=== PATIENT | female | born 1930 | race African-American/Black ===

== ENCOUNTER → 2017-03-12 | Outpatient (CLI) | payer MEDICARE, OTHER ==
[2017-03-12 10:43] LABS: HEMATOCRIT 33.6 % (36.0-47.0); HEMOGLOBIN 11.3 g/dL (12.0-15.5); HGB HCT DIFFERENCE 0.3; MEAN CORPUSCULAR HEMOGLOBIN 30.2 pg (27.0-33.4); MEAN CORPUSCULAR HGB CONC 33.5 g/dL (32.0-36.0); MEAN CORPUSCULAR VOLUME 90 fl (80-97); RED BLOOD COUNT 3.73 10^6/uL (3.72-5.28); RED CELL DISTRIBUTION WIDTH 14.8 % (11.5-14.0); WHITE BLOOD COUNT 11.6 10^3/uL (4.0-10.5)
[2017-03-13 12:07] LABS: ALANINE AMINOTRANSFERASE 36 U/L (9-52); ALBUMIN 3.9 g/dL (3.5-5.0); ALKALINE PHOSPHATASE 85 U/L (38-126); ANION GAP 12 (5-19); ASPARTATE AMINO TRANSFERASE 22 U/L (14-36); BILIRUBIN,DIRECT 0.4 mg/dL (0.0-0.4); BILIRUBIN,TOTAL 0.5 mg/dL (0.2-1.3); BLOOD UREA NITROGEN 12 mg/dL (7-20); CALCIUM 9.4 mg/dL (8.4-10.2); CARBON DIOXIDE 28 mmol/L (22-30); CHLORIDE 103 mmol/L (98-107); CHOLESTEROL 138.84 mg/dL (0-200); CREATININE RESULT 0.66 mg/dL (0.52-1.25); Direct HDL 61 mg/dL (>40); GLUCOSE 110 mg/dL (75-110); MAGNESIUM 1.9 mg/dL (1.6-2.3); POTASSIUM 3.8 mmol/L (3.6-5.0); SODIUM 143.4 mmol/L (137-145); TOTAL PROTEIN 6.9 g/dL (6.3-8.2); TRIGLYCERIDES 73 mg/dL (<150)
[2017-03-13 12:18] LABS: DIRECT LDL 45 mg/dL (<100)
== END ==
LOC: OD 09:40
PROVIDERS: ATTEND Family Medicine
DX: I10 Essential (primary) hypertension (principal); E11.42 Type 2 diabetes mellitus with diabetic polyneuropathy
CPT/HCPCS: 36415; 80048; 80061; 80076; 83036; 83735; 85027

== ENCOUNTER 2017-08-27 16:48 | Observation (INO) | payer MEDICARE, OTHER ==
--- NOTE | 2017-08-27 17:07 | ER Document Report ---
ED Medical Screen (RME) - General Chief Complaint: Vision Problem Stated Complaint: HEADACHE Time Seen by Provider: 08/27/17 17:03 Mode of Arrival: Ambulatory Notes: Family brings in patient for altered mental status. They state that they noticed approximately 2 hours ago the patient began to become confused and complained of headache. They also state that they noticed that patient's vision appeared to be altered. Patient states that she just does not feel "right". No focal deficits apparent. TRAVEL OUTSIDE OF THE [place] IN LAST 30 DAYS: No - Related Data Allergies/Adverse Reactions: No Known Allergies Allergy (Verified 08/27/17 16:50) Past Medical History - Social History Chew tobacco use (# tins/day): No Frequency of alcohol use: None Drug Abuse: None - Past Medical History Cardiac Medical History: Reports: Hx Hypertension Endocrine Medical History: Reports: Hx Diabetes Mellitus Type 2 Renal/ Medical History: Denies: Hx Peritoneal Dialysis Physical Exam - Vital signs Vitals: Temp Pulse Resp BP Pulse Ox 98.1 F 62 20 162/66 H 99 08/27/17 16:55 08/27/17 16:55 08/27/17 16:55 08/27/17 16:55 08/27/17 16:55 Course - Vital Signs Vital signs: Temp Pulse Resp BP Pulse Ox 98.1 F 62 20 162/66 H 99 08/27/17 16:55 08/27/17 16:55 08/27/17 16:55 08/27/17 16:55 08/27/17 16:55 Doctor's Discharge - Discharge Referrals: DARREN MAURO DO [Primary Care Provider] - Follow up as needed
--- NOTE | 2017-08-27 17:28 | RADIOLOGY REPORT (SQ) ---
EXAM DESCRIPTION: CT HEAD WITHOUT COMPLETED DATE/TIME: 08/27/2017 5:16 pm REASON FOR STUDY: ams COMPARISON: None. TECHNIQUE: Axial images acquired through the brain without intravenous contrast. Images reviewed wi th bone, brain and subdural windows. Additional sagittal and coronal reconstructions were generated. Images stored on PACS. All CT scanners at this facility use dose modulation, iterative reconstruction, and/or weight based d osing when appropriate to reduce radiation dose to as low as reasonably achievable (ALARA). [facility]: Dose Right [facility]: CareDose [facility]: Dose Right [facility]: Teradose 4D [facility]: [employer] RADIATION DOSE: CT Rad equipment meets quality standard of care and radiation dose reduction techniq ues were employed. CTDIvol: 53.2 mGy. DLP: 1044 mGy-cm. mGy. LIMITATIONS: None. FINDINGS: VENTRICLES: Normal size and contour. CEREBRUM: No mass or hemorrhage or shift. Focal cortical/subcortical low density in the right parieta l lobe. Likely a chronic area of infarct here. Presumed chronic basal ganglia calcifications bilate rally. CEREBELLUM: No masses. No hemorrhage. No alteration of density. No evidence for acute infarction. EXTRAAXIAL SPACES: No fluid collections. No masses. ORBITS AND GLOBE: No intra- or extraconal masses. Normal contour of globe without masses. CALVARIUM: No fracture. PARANASAL SINUSES: No fluid or mucosal thickening. SOFT TISSUES: No mass or hematoma. OTHER: No other significant finding. IMPRESSION: 1. Suspect chronic right focal area of cerebral infarction. No hemorrhage or acute abno rmality detected. Pertinent positive or negative findings of the imaging study reported as a CRITICAL EXAM to ACE MNOTOYA MD at17:22 on 08/27/2017. Category of Critical Exam: Stroke alert EVIDENCE OF ACUTE STROKE: NO. COMMENT: Quality ID # [id number]: Final reports with documentation of one or more dose reduction techniques (e.g., Automated exposure control, adjustment of the mA and/or kV according to patient size, use of iterative reconstruction technique) TECHNICAL DOCUMENTATION: JOB ID: [id number] [employer]- All Rights Reserved Reading location - IP/workstation name: [facility] [email or web address]
--- NOTE | 2017-08-27 17:49 | RADIOLOGY REPORT (SQ) ---
EXAM DESCRIPTION: CHEST SINGLE VIEW COMPLETED DATE/TIME: 08/27/2017 5:23 pm REASON FOR STUDY: ams COMPARISON: None. NUMBER OF VIEWS: One view. TECHNIQUE: Single frontal radiographic view of the chest acquired. LIMITATIONS: None. FINDINGS: LUNGS AND PLEURA: No opacities, masses or pneumothorax. No pleural effusion. MEDIASTINUM AND HILAR STRUCTURES: No masses. Contour normal. HEART AND VASCULAR STRUCTURES: Heart normal in size. Normal vasculature. BONES: Osteopenic. HARDWARE: None in the chest. OTHER: No other significant finding. IMPRESSION: NO SIGNIFICANT RADIOGRAPHIC FINDING IN THE CHEST. TECHNICAL DOCUMENTATION: JOB ID: [id number] [employer]- All Rights Reserved Reading location - IP/workstation name: [email or web address]
[2017-08-27 18:11] LABS: ABSOLUTE BASOPHILS # (AUTO) 0.1 10^3/uL (0.0-0.2); ABSOLUTE EOSINOPHILS # (AUTO) 0.2 10^3/uL (0.0-0.6); ABSOLUTE LYMPHOCYTES (AUTO) 2.1 10^3/uL (0.5-4.7); ABSOLUTE MONOCYTES (AUTO) 0.5 10^3/uL (0.1-1.4); ABSOLUTE NEUT (AUTO) 12.3 10^3/uL (1.7-8.2); BASOPHILS % (AUTO) 0.9 % (0-2); EOSINOPHILS % (AUTO) 1.6 % (0-6); HEMATOCRIT 38.4 % (36.0-47.0); HEMOGLOBIN 12.6 g/dL (12.0-15.5); LYMPHOCYTES % (AUTO) 13.9 % (13-45); MEAN CORPUSCULAR HEMOGLOBIN 29.1 pg (27.0-33.4); MEAN CORPUSCULAR HGB CONC 32.7 g/dL (32.0-36.0); MEAN CORPUSCULAR VOLUME 89 fl (80-97); MONOCYTES % (AUTO) 3.4 % (3-13); PLATELET COUNT 351 10^3/uL (150-450); RED BLOOD COUNT 4.31 10^6/uL (3.72-5.28); SEGMENTED NEUTROPHILS % (AUTO) 80.2 % (42-78); TOTAL CELLS COUNTED % (AUTO) 100 %; WHITE BLOOD COUNT 15.3 10^3/uL (4.0-10.5)
[2017-08-27] MEDS ORDERED: DEXTROSE 50%-WATER 25 GM/50 ML DISP.SYRIN IV ONE (18:33)
[2017-08-27] MEDS ORDERED: PROCHLORPERAZINE EDISYLATE INJ 10 MG/2 ML VIAL IV ONE (18:33)
[2017-08-27] MEDS ORDERED: ONDANSETRON HCL INJ/PF 4 MG/2 ML SDV IV ONE (18:33)
[2017-08-27] MEDS ORDERED: NORMAL SALINE 1000 ML 500 ML IV ONE (18:40)
[2017-08-27 19:24] LABS: ALANINE AMINOTRANSFERASE 21 U/L (9-52); ALBUMIN 4.4 g/dL (3.5-5.0); ALKALINE PHOSPHATASE 97 U/L (38-126); ANION GAP 12 (5-19); ASPARTATE AMINO TRANSFERASE 22 U/L (14-36); BILIRUBIN,DIRECT 0.4 mg/dL (0.0-0.4); BILIRUBIN,TOTAL 0.5 mg/dL (0.2-1.3); BLOOD UREA NITROGEN 16 mg/dL (7-20); CALCIUM 10.1 mg/dL (8.4-10.2); CARBON DIOXIDE 27 mmol/L (22-30); CHLORIDE 103 mmol/L (98-107); GLUCOSE 116 mg/dL (75-110); POTASSIUM 4.3 mmol/L (3.6-5.0); SODIUM 141.8 mmol/L (137-145); TOTAL PROTEIN 8.1 g/dL (6.3-8.2)
--- NOTE | 2017-08-27 19:42 | EKG REPORT ---
SEVERITY:- ABNORMAL ECG - SINUS RHYTHM FIRST DEGREE AV BLOCK LEFT VENTRICULAR HYPERTROPHY : Confirmed by: Jose Manuel Collins MD 27-Aug-2017 19:41:06
[2017-08-27] MEDS ORDERED: LABETALOL HCL INJ 20 MG/4 ML DISP.SYRIN IV ONE (19:47)
[2017-08-27] MEDS ORDERED: HYDRALAZINE HCL INJ/PF 20 MG/1 ML SDV IV ONE (19:50)
[2017-08-27 19:58] LABS: APPEARANCE,URINE CLEAR; BILIRUBIN,URINE NEGATIVE (NEGATIVE); COLOR,URINE STRAW; GLUCOSE, URINE NEGATIVE (NEGATIVE); KETONES,URINE NEGATIVE (NEGATIVE); LEUKOCYTE ESTERASE,URINE NEGATIVE (NEGATIVE); NITRITE,URINE NEGATIVE (NEGATIVE); PROTEIN,URINE NEGATIVE (NEGATIVE); URINE SPECIFIC GRAVITY 1.009; UROBILINOGEN,URINE NEGATIVE mg/dL (<2.0)
[2017-08-27] MEDS ORDERED: CARVEDILOL 6.25 MG TABLET PO ONE (20:12)
[2017-08-27] MEDS ORDERED: AMLODIPINE BESYLATE 5 MG TABLET PO ONE (20:39)
[2017-08-27] MEDS ORDERED: NICARDIPINE HCL RTU, ISO-OS 20 MG/200 ML RTUINJ IV PRN (21:29)
--- NOTE | 2017-08-27 22:11 | ER Document Report ---
ED General - General Chief Complaint: Vision Problem Stated Complaint: HEADACHE Time Seen by Provider: 08/27/17 17:03 Mode of Arrival: Ambulatory TRAVEL OUTSIDE OF THE [place] IN LAST 30 DAYS: No - HPI Patient complains to provider of: Headache altered mental state Notes: Patient was brought in according to the E note by family members for headache and altered mental state. Apparently this occurred very acutely. Patient was seen RME and then brought back to the main side. Patient had no family members upon my evaluation nursing staff and already found an extra fentanyl patch on her leg and removed it patient also had a Accu-Chek performed showing hyperglycemia with sugar of 69. Patient was given juice did quickly evaluate the patient who is alert moving all 4 extremities only complaining of a headache at this time. We did order IV dextrose which was administered. Upon reevaluation patient more clingy alert still complaining of a headache frontal. Patient denies any fevers chills nausea vomiting. Patient states just otherwise feeling unwell. Patient is alert and oriented 3. No obvious deficits seen - Related Data Allergies/Adverse Reactions: No Known Allergies Allergy (Verified 08/27/17 16:50) Past Medical History - Social History Smoking Status: Never Smoker Chew tobacco use (# tins/day): No Frequency of alcohol use: None Drug Abuse: None Family History: Reviewed & Not Pertinent Patient has suicidal ideation: No Patient has homicidal ideation: No - Past Medical History Cardiac Medical History: Reports: Hx Hypertension Endocrine Medical History: Reports: Hx Diabetes Mellitus Type 2 Renal/ Medical History: Denies: Hx Peritoneal Dialysis Review of Systems - Review of Systems Constitutional: No symptoms reported EENT: No symptoms reported Cardiovascular: No symptoms reported Respiratory: No symptoms reported Gastrointestinal: No symptoms reported Genitourinary: No symptoms reported Female Genitourinary: No symptoms reported Musculoskeletal: No symptoms reported Skin: No symptoms reported Hematologic/Lymphatic: No symptoms reported Neurological/Psychological: Other - Altered mental state headache -: Yes All other systems reviewed and negative Physical Exam - Vital signs Vitals: Temp Pulse Resp BP Pulse Ox 98.1 F 62 20 162/66 H 99 08/27/17 16:55 08/27/17 16:55 08/27/17 16:55 08/27/17 16:55 08/27/17 16:55 Interpretation: Normal - General General appearance: Appears well, Alert - HEENT Head: Normocephalic, Atraumatic Eyes: Normal Pupils: PERRL - Respiratory Respiratory status: No respiratory distress Chest status: Nontender Breath sounds: Normal Chest palpation: Normal - Cardiovascular Rhythm: Regular Heart sounds: Normal auscultation Murmur: No - Abdominal Inspection: Normal Distension: No distension Bowel sounds: Normal Tenderness: Nontender Organomegaly: No organomegaly - Back Back: Normal, Nontender - Extremities General upper extremity: Normal inspection, Nontender, Normal color, Normal ROM , Normal temperature General lower extremity: Normal inspection, Nontender, Normal color, Normal ROM , Normal temperature, Normal weight bearing. No: Francesco's sign - Neurological Neuro grossly intact: Yes Cognition: Normal Orientation: AAOx4 [place] Coma Scale Eye Opening: Spontaneous [place] Coma Scale Verbal: Oriented Domen[place] Coma Scale Motor: Obeys Commands [place] Coma Scale Total: 15 Speech: Normal Cranial nerves: Normal Cerebellar coordination: Normal, Other - Was informed by nursing staff that her cerebellar testing upon receiving the patient was abnormal. My cerebellar testing was normal no pass pointing. 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 Initial evaluation patient was found to have a low blood sugar an extra fentanyl patch. Mr. Li patch was removed patient was given IV glucose patient physical examination not revealing pedicle pathology initially able to ambulate to the bathroom no unilateral weakness no deficits seen. Upon reevaluation of family at bedside states the patient does still seem to be off. States it is patient still seems to be confused currently still complains about headache and they are concerned as of the patient's blood pressure has increased. Patient states she has not taken her evening meds patient initially after Compazine Gilma stated that her headache had improved on stating that her headache still persist. Patient did undergo a CAT scan showing old stroke with family does confirm. Initially an IV dose of hydralazine was given with minimal lowering of the blood pressure. Family was able to obtain the patient's medications we did review these at bedside decision was made to give her orders. These were ordered and given by nursing staff however when this was administered by the nurse apparently patient family was not in the room. Family states upon their entrance into the examination room still saw the patient's blood pressure is elevated therefore leg again gave the patient her nighttime dose of blood pressure medications 5 mg of amlodipine and carvedilol. Patient still continues to complain of mild headache frontal. Again noted neurological deficits seen the do believe the patient is altered mental state was more likely due to hypoglycemia but I am concerned that the patient received doubled her nighttime dose of blood pressure medications. Did discuss with the hospital staff is agreed to admit the patient for altered mental state transient and blood pressure - Vital Signs Vital signs: Temp Pulse Resp BP Pulse Ox 98.1 F 66 22 H 167/80 H 91 L 08/27/17 16:55 08/27/17 17:50 08/27/17 22:46 08/27/17 22:46 08/27/17 22:46 - Laboratory Result Diagrams: 08/27/17 17:57 08/27/17 18:35 Laboratory results interpreted by me: 08/27/17 08/27/17 08/27/17 17:25 17:57 18:35 WBC 15.3 H RDW 15.0 H Seg Neutrophils % 80.2 H Absolute Neutrophils 12.3 H Glucose 116 H POC Glucose 69 L Discharge - Discharge Clinical Impression: Hypoglycemia, Uncontrolled hypertension Condition: Good Disposition: ADMITTED OBSERVATION Admitting Provider: Hospitalist Unit Admitted: Medical Floor
[2017-08-27] MEDS ORDERED: ACETAMINOPHEN 650 MG SUPP.RECT PR PRN (22:30)
[2017-08-27] MEDS ORDERED: ONDANSETRON HCL INJ/PF 4 MG/2 ML SDV IV PRN (22:30)
[2017-08-27] MEDS ORDERED: DEXTROSE 40% GEL 15 GM TUBE PO PRN ×2 (22:37)
[2017-08-27] MEDS ORDERED: DEXTROSE 5%-NORMAL SALINE 1,000 ML IV PRN (22:37)
[2017-08-27] MEDS ORDERED: DEXTROSE 50%-WATER 25 GM/50 ML DISP.SYRIN IV PRN ×2 (22:37)
[2017-08-27] MEDS ORDERED: INSULIN LISPRO 100 UNIT/ML 3 ML VIAL SUBCUT PRN (22:37)
[2017-08-27] MEDS ORDERED: GLUCAGON,HUMAN RECOMB 1 MG INJ IM PRN (22:37)
--- NOTE | 2017-08-27 23:13 | PDOC H&P ---
History of Present Illness Admission Date/PCP: 08/27/17 23:02 DARREN MAURO DO History of Present Illness: EVELINELY MEREDITH is a very pleasant 86 year old black female patient brought by her son with chief complaint of confusion and incoherent speech. Reportedly patient is active and independent for her activities of daily living. There is no report of fever, chills palpitation or diaphoresis. She does not have cough or dysuria. Patient uses oxycodone and fentanyl patch for knee pain. Her initial blood work shows blood glucose of 69 patient's hypoglycemic which might explain also her confusion. Does not have any lateralizing sign or focal neurologic deficits. Past Medical History Cardiac Medical History: Reports: Hypertension Endocrine Medical History: Reports: Diabetes Mellitus Type 2 Past Surgical History Past Surgical History: Reports: Orthopedic Surgery Social History Smoking Status: Never Smoker Frequency of Alcohol Use: None Family History Family History: None Parental Family History Reviewed: Yes Children Family History Reviewed: Yes Sibling(s) Family History Reviewed.: Yes Medication/Allergy Allergies/Adverse Reactions: No Known Allergies Allergy (Verified 08/27/17 16:50) Review of Systems Constitutional: PRESENT: as per HPI Ears: PRESENT: as per HPI Breasts: PRESENT: as per HPI Cardiovascular: PRESENT: as per HPI Respiratory: PRESENT: as per HPI Physical Exam Vital Signs: Temp Pulse Resp BP Pulse Ox 98.1 F 66 22 H 167/80 H 91 L 08/27/17 16:55 08/27/17 17:50 08/27/17 22:46 08/27/17 22:46 08/27/17 22:46 General appearance: PRESENT: no acute distress Head exam: PRESENT: atraumatic, normocephalic Respiratory exam: PRESENT: clear to auscultation vipul. ABSENT: rales, rhonchi, wheezes Cardiovascular exam: PRESENT: RRR. ABSENT: diastolic murmur, rubs, systolic murmur Results Impressions: Chest X-Ray 08/27/17 17:04 IMPRESSION: NO SIGNIFICANT RADIOGRAPHIC FINDING IN THE CHEST. Head CT 08/27/17 17:04 IMPRESSION: 1. Suspect chronic right focal area of cerebral infarction. No hemorrhage or acute abnormality detected. Pertinent positive or negative findings of the imaging study reported as a CRITICAL EXAM to ACE ARVIZU MD at17:22 on 08/27/2017. Category of Critical Exam: Stroke alert EVIDENCE OF ACUTE STROKE: NO. Assessment & Plan - Diagnosis (1) Hypoglycemia Is this a current diagnosis for this admission?: Yes Plan: I will start her D5 with normal saline at a rate of 75 mm/h. I will start her diet Put her on sliding scale (2) Uncontrolled hypertension Is this a current diagnosis for this admission?: Yes Plan: I will adjust her home medication (3) Diabetes 1.5, managed as type 2 Is this a current diagnosis for this admission?: Yes Plan: We will put her on sliding scale and monitor her blood glucose. - Time Critical Time spent with patient: 15-24 minutes
[2017-08-28] MEDS ORDERED: LANSOPRAZOLE 30 MG TAB.RAP.DR PO SCH (06:00)
[2017-08-28 06:49] LABS: HEMATOCRIT 34.3 % (36.0-47.0); HEMOGLOBIN 11.2 g/dL (12.0-15.5); MEAN CORPUSCULAR HEMOGLOBIN 28.9 pg (27.0-33.4); MEAN CORPUSCULAR HGB CONC 32.6 g/dL (32.0-36.0); MEAN CORPUSCULAR VOLUME 89 fl (80-97); PLATELET COUNT 298 10^3/uL (150-450); RED BLOOD COUNT 3.86 10^6/uL (3.72-5.28); RED CELL DISTRIBUTION WIDTH 15.1 % (11.5-14.0); WHITE BLOOD COUNT 15.3 10^3/uL (4.0-10.5)
[2017-08-28 07:13] LABS: ANION GAP 10 (5-19); BLOOD UREA NITROGEN 13 mg/dL (7-20); CALCIUM 9.8 mg/dL (8.4-10.2); CARBON DIOXIDE 27 mmol/L (22-30); CHLORIDE 103 mmol/L (98-107); GLUCOSE 148 mg/dL (75-110); POTASSIUM 3.9 mmol/L (3.6-5.0)
--- NOTE | 2017-08-28 09:47 | Physician Advisory Note ---
Physician Advisor ProgressNote .: Pursuant to the plan for Wille[facility], I have reviewed the medical record for this patient. Physician Advisor Statement: Please consider documenting, if you agree: 1. ""Hypertensive Urgency" or "Hypertensive Emergency": - "Hypertensive Urgency" requires urgent tx & BP's systolic >180 or diastolic >120. - "Hypertensive Emergency" requires urgent tx & BP's systolic >180 or diastolic >120 AND symptoms &/or end-organ effects (such as headache or dizziness, blurred vision, focal numbness/weakness, ARF, SOB, N/V, CP or unstable angina, ... - Nursing note last pm @18:54 states pt reported having "bad VILLA and my vision was funny" after waking from nap prior to arrival). 2. Altered mental status, likely due to [see options below], & evidenced by Cause options = A. Acute metabolic encephalopathy due to , or B. Acute ____ type encephalopathy due to on top of baseline dementia, evidenced by (which is different than baseline), or C. Psychiatric disorder: dementia, jack, schizophrenia, (stating "AMS ", or "delirium" without underlying cause/encephalopathy leads to coding as an unspecified psych d/o) D. Hypoglycemia, or .... Evidence: - H&P states "confusion, incoherent speech" (more details/ examples of what she was doing that was different from baseline would be helpful ) 3. Medical necessity: If the Medicare pt is not felt safe medically for d/c today, after 1MN, please document clinical reasons/concerns, & may change to Inpatient status. (Such as: "persistent tachycardia", or "persistent bradycardia", or "persistent/recurrent tachypnea", or "persistent leukocytosis", or "recurrent hypoxemia", or ...) 4. "side effect of Coreg extra dose, given in error, causing bradycardia" ( after family gave extra dose of her home Coreg & Norvasc on 4 PM without telling nurse until after nurse gave her her scheduled doses ...) Thanks! CK
[2017-08-28] MEDS ORDERED: DOCUSATE SODIUM 100 MG CAPSULE PO SCH (10:00)
[2017-08-28] MEDS ORDERED: ENOXAPARIN SODIUM INJ 30 MG/0.3 ML DISP.SYRIN SUBCUT SCH (10:00)
[2017-08-28 16:16] VITALS: BP 181/62
[2017-08-28] MEDS ORDERED: HYDRALAZINE HCL INJ/PF 20 MG/1 ML SDV IV ONE (16:45)
[2017-08-28] MEDS ORDERED: FENTANYL 25 MCG/HR PATCH.TD72 TD SCH (18:00)
--- NOTE | 2017-08-28 18:04 | PDOC DISCHARGE SUMMARY ---
General - Admit/Disc Date/PCP Admission Date/Primary Care Provider: 08/27/17 23:02 DARREN MAURODO Discharge Date: 08/28/17 - Discharge Diagnosis (1) Encephalopathy Is this a current diagnosis for this admission?: Yes Summary: The patient was somewhat confused at the time of admission likely due to her hypertensive urgency. She is back to her cognitive baseline. I have spoken to multiple family members and they say she is back to her normal self. She also may have been slightly dehydrated although her labs were normal. (2) Hypertensive urgency Is this a current diagnosis for this admission?: Yes Summary: Resolved. The patient had not taken her blood pressure medications. She will continue p.o. amlodipine at discharge. She will need close follow-up from her outpatient physician. (3) Chronic pain Is this a current diagnosis for this admission?: Yes Summary: Chronic pain with continuous narcotic use. Continue fentanyl patch (4) Opiate dependence, continuous Is this a current diagnosis for this admission?: Yes Summary: Continue fentanyl patch. (5) Hypoglycemia Is this a current diagnosis for this admission?: Yes (6) Diabetes Is this a current diagnosis for this admission?: Yes Summary: She will resume her home regimen - Additional Information Resuscitation Status: Full Code Home Medications: Amlodipine Besylate [Norvasc 10 mg Tablet] 10 mg PO QHS MDD LF 07/14 75% BOTTLE 08/28/17 Atorvastatin Calcium [Lipitor 20 mg Tablet] 20 mg PO QHS MDD LF 04/17 FULL BOTTLE 08/28/17 Carvedilol [Coreg 6.25 mg Tablet] 6.25 mg PO Q12 MDD LF 04/12/16 FULL BOTTLE 03/07 Fentanyl [Duragesic 25 mcg/hr Transdermal Patch] 1 each TD Q2D 08/28/17 Gabapentin [Neurontin 100 mg Capsule] 100 mg PO QHS 08/28/17 Glyburide/Metformin HCl [Glyburide-Metformin 5-500 mg] 1 tab PO Q8 MDD LF 02/10 HALF BOTTLE 08/28/17 Lansoprazole [Prevacid] 30 mg PO ACBRKFST MDD LF 07/09 HALF BOTTLE 08/28/17 Venlafaxine HCl [Venlafaxine HCl ER] 75 mg PO DAILY MDD LF 01/20 FULL BOTTLE 08/28 History of Present Illness History of Present Illness: VICTOR HUGO HARPER is a 86 year old female who presented to the emergency room somewhat confused. Hospital Course Hospital Course: The patient is a very pleasant 86-year-old -[place] female who was brought to the son to the emergency room with some confusion. The patient is active and independent with her date daily activities at home. In the emergency room she was found to be borderline hypoglycemic and she was found to have a hypertensive urgency. This was treated and her blood pressure has normalized. She was kept in the hospital overnight. She received some gentle hydration and today she is back to her baseline. She is up ambulating in the room and the patient's family states that she is back to normal. At this point we are going to discharge her to home. We will get her an appointment to follow -up with her primary care physician next week. She will be discharged home today in stable condition Physical Exam Vital Signs: Temp Pulse Resp BP Pulse Ox 98.4 F 77 19 181/62 H 100 08/28/17 16:15 08/28/17 16:15 08/28/17 16:15 08/28/17 16:15 08/28/17 16:15 Intake & Output 08/27/17 08/28/17 08/29/17 06:59 06:59 06:59 Weight 65.78 kg General appearance: PRESENT: no acute distress, well-developed, well-nourished Head exam: PRESENT: atraumatic, normocephalic Respiratory exam: PRESENT: clear to auscultation vipul. ABSENT: rales, rhonchi, wheezes Cardiovascular exam: PRESENT: RRR. ABSENT: diastolic murmur, rubs, systolic murmur GI/Abdominal exam: PRESENT: normal bowel sounds, soft. ABSENT: distended, guarding, mass, organolmegaly, rebound, tenderness Rectal exam: PRESENT: deferred Extremities exam: PRESENT: full ROM. ABSENT: calf tenderness, clubbing, pedal edema Musculoskeletal exam: PRESENT: ambulatory Neurological exam: PRESENT: alert, awake, oriented to person, oriented to place , oriented to time, oriented to situation, CN II-XII grossly intact. ABSENT: motor sensory deficit Psychiatric exam: PRESENT: appropriate affect, normal mood. ABSENT: homicidal ideation, suicidal ideation Skin exam: PRESENT: dry, intact, warm. ABSENT: cyanosis, rash Results Laboratory Results: 08/28/17 06:25 08/28/17 06:25 08/28/17 08/28/17 06:25 06:25 WBC 15.3 H RBC 3.86 Hgb 11.2 L Hct 34.3 L MCV 89 MCH 28.9 MCHC 32.6 RDW 15.1 H Plt Count 298 Sodium 140.0 Potassium 3.9 Chloride 103 Carbon Dioxide 27 Anion Gap 10 BUN 13 Creatinine 0.61 Est GFR ( Amer) > 60 Est GFR (Non-Af Amer) > 60 Glucose 148 H Calcium 9.8 Impressions: Chest X-Ray 08/27/17 17:04 IMPRESSION: NO SIGNIFICANT RADIOGRAPHIC FINDING IN THE CHEST. Head CT 08/27/17 17:04 IMPRESSION: 1. Suspect chronic right focal area of cerebral infarction. No hemorrhage or acute abnormality detected. Pertinent positive or negative findings of the imaging study reported as a CRITICAL EXAM to ACE ARVIZU MD at17:22 on 08/27/2017. Category of Critical Exam: Stroke alert EVIDENCE OF ACUTE STROKE: NO. Qualifiers - * PATEINT BEING DISCHARGED WITH ANY OF THE FOLLOWING DIAGNOSIS?: No Plan Time Spent: Greater than 30 Minutes
[2017-08-28] MEDS ORDERED: AMLODIPINE BESYLATE 10 MG TABLET PO SCH (22:00)
[2017-08-28] MEDS ORDERED: (PENDING PHARMACY ID) (Glyburide/Metformin Hcl [Glyburide-Metformin 5-500 Mg] 1 TAB) PO SCH (22:00)
[2017-08-28] MEDS ORDERED: ATORVASTATIN CALCIUM 20 MG TABLET PO SCH (22:00)
[2017-08-28] MEDS ORDERED: CARVEDILOL 6.25 MG TABLET PO SCH (22:00)
[2017-08-28] MEDS ORDERED: GABAPENTIN 100 MG CAPSULE PO SCH (22:00)
[2017-08-29] MEDS ORDERED: GLYBURIDE 5 MG TABLET PO SCH (08:00)
[2017-08-29] MEDS ORDERED: METFORMIN HCL 500 MG TABLET PO SCH (08:00)
[2017-08-29] MEDS ORDERED: VENLAFAXINE HCL 75 MG CAP.SR.24H PO SCH (10:00)
== END 2017-08-28 18:15 | disposition home or self-care (01) ==
LOC: ER 16:48 → EH 23:02 → 4N 08-28 11:31
PROVIDERS: ADMIT Internal Medicine; ATTEND Internal Medicine
DX: G93.40 Encephalopathy, unspecified (principal); I16.0 Hypertensive urgency; G89.29 Other chronic pain; F11.20 Opioid dependence, uncomplicated; E11.649 Type 2 diabetes mellitus with hypoglycemia without coma; M25.569 Pain in unspecified knee; Z79.899 Other long term (current) drug therapy; Z79.84 Long term (current) use of oral hypoglycemic drugs; Z86.73 Personal history of transient ischemic attack (TIA), and cerebral infarction without residual deficits
CPT/HCPCS: 93005; 99285; 96361; 96374; 96375; 36415 ×2; 82962 ×2; 85025; 85027; 80048; 80053; 81001; 71045; 70450; 93010; G0378 ×3; A9270 ×4; J3490 ×2; J0360 ×2; J0780; J2405; J1650; J7030

== ENCOUNTER → 2017-10-08 | Outpatient (CLI) | payer MEDICARE, OTHER ==
[2017-10-08 10:43] LABS: ABSOLUTE BASOPHILS # (AUTO) 0.1 10^3/uL (0.0-0.2); ABSOLUTE EOSINOPHILS # (AUTO) 0.2 10^3/uL (0.0-0.6); ABSOLUTE LYMPHOCYTES (AUTO) 1.8 10^3/uL (0.5-4.7); ABSOLUTE MONOCYTES (AUTO) 0.5 10^3/uL (0.1-1.4); ABSOLUTE NEUT (AUTO) 11.7 10^3/uL (1.7-8.2); BASOPHILS % (AUTO) 0.6 % (0-2); EOSINOPHILS % (AUTO) 1.1 % (0-6); HEMATOCRIT 34.6 % (36.0-47.0); HEMOGLOBIN 11.4 g/dL (12.0-15.5); LYMPHOCYTES % (AUTO) 12.8 % (13-45); MEAN CORPUSCULAR HGB CONC 32.9 g/dL (32.0-36.0); MEAN CORPUSCULAR VOLUME 88 fl (80-97); MONOCYTES % (AUTO) 3.3 % (3-13); PLATELET COUNT 317 10^3/uL (150-450); RED BLOOD COUNT 3.93 10^6/uL (3.72-5.28); RED CELL DISTRIBUTION WIDTH 15.7 % (11.5-14.0); SEGMENTED NEUTROPHILS % (AUTO) 82.2 % (42-78); TOTAL CELLS COUNTED % (AUTO) 100 %; WHITE BLOOD COUNT 14.2 10^3/uL (4.0-10.5)
[2017-10-08 11:08] LABS: ALANINE AMINOTRANSFERASE 28 U/L (9-52); ALBUMIN 4.3 g/dL (3.5-5.0); ALKALINE PHOSPHATASE 92 U/L (38-126); ANION GAP 13 (5-19); ASPARTATE AMINO TRANSFERASE 22 U/L (14-36); BILIRUBIN,DIRECT 0.3 mg/dL (0.0-0.4); BILIRUBIN,TOTAL 0.4 mg/dL (0.2-1.3); BLOOD UREA NITROGEN 18 mg/dL (7-20); CALCIUM 9.8 mg/dL (8.4-10.2); CARBON DIOXIDE 28 mmol/L (22-30); CHLORIDE 103 mmol/L (98-107); CHOLESTEROL 147.09 mg/dL (0-200); GLUCOSE 131 mg/dL (75-110); SODIUM 143.6 mmol/L (137-145); TOTAL PROTEIN 7.7 g/dL (6.3-8.2); TRIGLYCERIDES 103 mg/dL (<150)
[2017-10-08 11:20] LABS: DIRECT LDL 48 mg/dL (<100)
== END ==
LOC: LAB 10:07
PROVIDERS: ATTEND Family Medicine
DX: I10 Essential (primary) hypertension (principal); E11.42 Type 2 diabetes mellitus with diabetic polyneuropathy; E78.5 Hyperlipidemia, unspecified
CPT/HCPCS: 36415; 80048; 80061; 80076; 83036; 83735; 85025

== ENCOUNTER → 2018-02-19 | Outpatient (CLI) | payer MEDICARE, OTHER ==
[2018-02-19 11:52] LABS: ABSOLUTE BASOPHILS # (AUTO) 0.1 10^3/uL (0.0-0.2); ABSOLUTE EOSINOPHILS # (AUTO) 0.2 10^3/uL (0.0-0.6); ABSOLUTE LYMPHOCYTES (AUTO) 1.5 10^3/uL (0.5-4.7); ABSOLUTE MONOCYTES (AUTO) 0.6 10^3/uL (0.1-1.4); ABSOLUTE NEUT (AUTO) 13.2 10^3/uL (1.7-8.2); BASOPHILS % (AUTO) 0.5 % (0-2); EOSINOPHILS % (AUTO) 1.2 % (0-6); HEMATOCRIT 34.8 % (36.0-47.0); HEMOGLOBIN 11.6 g/dL (12.0-15.5); LYMPHOCYTES % (AUTO) 9.8 % (13-45); MEAN CORPUSCULAR HEMOGLOBIN 29.6 pg (27.0-33.4); MEAN CORPUSCULAR HGB CONC 33.2 g/dL (32.0-36.0); MEAN CORPUSCULAR VOLUME 89 fl (80-97); MONOCYTES % (AUTO) 3.9 % (3-13); PLATELET COUNT 310 10^3/uL (150-450); RED CELL DISTRIBUTION WIDTH 15.9 % (11.5-14.0); SEGMENTED NEUTROPHILS % (AUTO) 84.6 % (42-78); TOTAL CELLS COUNTED % (AUTO) 100 %; WHITE BLOOD COUNT 15.7 10^3/uL (4.0-10.5)
[2018-02-19 12:16] LABS: ALANINE AMINOTRANSFERASE 29 U/L (9-52); ALBUMIN 4.4 g/dL (3.5-5.0); ALKALINE PHOSPHATASE 84 U/L (38-126); ANION GAP 10 (5-19); ASPARTATE AMINO TRANSFERASE 32 U/L (14-36); BILIRUBIN,DIRECT 0.5 mg/dL (0.0-0.4); BILIRUBIN,TOTAL 0.7 mg/dL (0.2-1.3); BLOOD UREA NITROGEN 13 mg/dL (7-20); CALCIUM 9.8 mg/dL (8.4-10.2); CARBON DIOXIDE 29 mmol/L (22-30); CHLORIDE 102 mmol/L (98-107); CHOLESTEROL 144.11 mg/dL (0-200); GLUCOSE 103 mg/dL (75-110); POTASSIUM 4.3 mmol/L (3.6-5.0); TRIGLYCERIDES 84 mg/dL (<150)
[2018-02-19 12:27] LABS: DIRECT LDL 48 mg/dL (<100)
== END ==
LOC: OD 10:15
PROVIDERS: ATTEND Family Medicine
DX: E78.5 Hyperlipidemia, unspecified (principal); E11.42 Type 2 diabetes mellitus with diabetic polyneuropathy; I10 Essential (primary) hypertension
CPT/HCPCS: 36415; 80048; 80061; 80076; 83036; 83735; 85025

== ENCOUNTER → 2018-08-01 | Outpatient (CLI) | payer MEDICARE, OTHER ==
[2018-08-01 11:23] LABS: ALANINE AMINOTRANSFERASE 15 U/L (9-52); ALBUMIN 4.2 g/dL (3.5-5.0); ALKALINE PHOSPHATASE 82 U/L (38-126); ANION GAP 12 (5-19); ASPARTATE AMINO TRANSFERASE 21 U/L (14-36); BILIRUBIN,DIRECT 0.3 mg/dL (0.0-0.4); BILIRUBIN,TOTAL 0.4 mg/dL (0.2-1.3); BLOOD UREA NITROGEN 16 mg/dL (7-20); CALCIUM 9.9 mg/dL (8.4-10.2); CARBON DIOXIDE 25 mmol/L (22-30); CHLORIDE 104 mmol/L (98-107); CHOLESTEROL 145.89 mg/dL (0-200); GLUCOSE 48 mg/dL (75-110); SODIUM 140.8 mmol/L (137-145); TOTAL PROTEIN 7.3 g/dL (6.3-8.2); TRIGLYCERIDES 103 mg/dL (<150)
[2018-08-01 11:25] LABS: ABSOLUTE BASOPHILS # (AUTO) 0.1 10^3/uL (0.0-0.2); ABSOLUTE EOSINOPHILS # (AUTO) 0.2 10^3/uL (0.0-0.6); ABSOLUTE MONOCYTES (AUTO) 0.5 10^3/uL (0.1-1.4); ABSOLUTE NEUT (AUTO) 6.7 10^3/uL (1.7-8.2); BASOPHILS % (AUTO) 0.7 % (0-2); EOSINOPHILS % (AUTO) 2.5 % (0-6); HEMATOCRIT 33.1 % (36.0-47.0); HEMOGLOBIN 10.9 g/dL (12.0-15.5); LYMPHOCYTES % (AUTO) 21.1 % (13-45); MEAN CORPUSCULAR HEMOGLOBIN 28.9 pg (27.0-33.4); MEAN CORPUSCULAR VOLUME 87 fl (80-97); PLATELET COUNT 290 10^3/uL (150-450); RED BLOOD COUNT 3.79 10^6/uL (3.72-5.28); RED CELL DISTRIBUTION WIDTH 14.9 % (11.5-14.0); SEGMENTED NEUTROPHILS % (AUTO) 70.7 % (42-78); TOTAL CELLS COUNTED % (AUTO) 100 %; WHITE BLOOD COUNT 9.5 10^3/uL (4.0-10.5)
[2018-08-01 11:34] LABS: DIRECT LDL 56 mg/dL (<100)
[2018-08-03 11:38] LABS: CREATININE URINE 96.2 mg/dL (Not Estab.); MICROALBUMIN URINE 12.2 ug/mL (Not Estab.)
== END ==
LOC: OD 09:40
PROVIDERS: ATTEND Family Medicine
DX: E78.5 Hyperlipidemia, unspecified (principal); E11.42 Type 2 diabetes mellitus with diabetic polyneuropathy
CPT/HCPCS: 36415; 80053; 80061; 82043; 82570; 83036; 85025

== ENCOUNTER → 2019-03-14 | Outpatient (CLI) | payer MEDICARE, OTHER ==
[2019-03-14 10:12] LABS: ABSOLUTE BASOPHILS # (AUTO) 0.1 10^3/uL (0.0-0.2); ABSOLUTE EOSINOPHILS # (AUTO) 0.3 10^3/uL (0.0-0.6); ABSOLUTE LYMPHOCYTES (AUTO) 1.6 10^3/uL (0.5-4.7); ABSOLUTE MONOCYTES (AUTO) 0.7 10^3/uL (0.1-1.4); ABSOLUTE NEUT (AUTO) 11.8 10^3/uL (1.7-8.2); BASOPHILS % (AUTO) 0.9 % (0-2); EOSINOPHILS % (AUTO) 1.9 % (0-6); HEMATOCRIT 29.3 % (36.0-47.0); HEMOGLOBIN 9.3 g/dL (12.0-15.5); MEAN CORPUSCULAR HEMOGLOBIN 25.5 pg (27.0-33.4); MEAN CORPUSCULAR HGB CONC 31.6 g/dL (32.0-36.0); MEAN CORPUSCULAR VOLUME 81 fl (80-97); MONOCYTES % (AUTO) 4.8 % (3-13); PLATELET COUNT 355 10^3/uL (150-450); RED BLOOD COUNT 3.63 10^6/uL (3.72-5.28); RED CELL DISTRIBUTION WIDTH 15.9 % (11.5-14.0); SEGMENTED NEUTROPHILS % (AUTO) 81.4 % (42-78); TOTAL CELLS COUNTED % (AUTO) 100 %; WHITE BLOOD COUNT 14.5 10^3/uL (4.0-10.5)
[2019-03-14 10:41] LABS: ANION GAP 10 (5-19); BLOOD UREA NITROGEN 15 mg/dL (7-20); CARBON DIOXIDE 31 mmol/L (22-30); CHLORIDE 101 mmol/L (98-107); GLUCOSE 113 mg/dL (75-110); IRON(TIBC) 29.6 ug/dL (37-170); POTASSIUM 4.2 mmol/L (3.6-5.0)
[2019-03-14 11:15] LABS: FERRITIN 9.81 ng/mL (11.1-264.0)
== END ==
LOC: OD 09:11
PROVIDERS: ATTEND Physician Assistant
DX: I10 Essential (primary) hypertension (principal); D64.9 Anemia, unspecified; G62.9 Polyneuropathy, unspecified
CPT/HCPCS: 36415; 80048; 82607; 82728; 82746; 83540; 83550; 85025

== ENCOUNTER 2019-05-01 16:29 | Emergency (ER) | payer MEDICARE, OTHER ==
--- NOTE | 2019-05-01 16:43 | ER Document Report ---
ED Medical Screen (RME) - General Chief Complaint: General Weakness Stated Complaint: POSSIBLE STROKE Time Seen by Provider: 05/01/19 16:31 Primary Care Provider: NATALIE REA PA-C [Primary Care Provider] - Follow up as needed TRAVEL OUTSIDE OF THE [place] 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 Family member did notice she was a little confused this morning as well. Throughout the day, symptoms have improved and he states that she is back to baseline currently. Patient states that she is feeling well. Pt states that she was feeling generally weak for about 2 days, but this morning wa s the most notable by family for changes. Denies drug allergies. No other concerns or complaints. She is able to eat and drink at this time without difficulty. She is urinating normally. Family concerned about another TIA as this happened 6mos ago and was similar. No fever, headache, chest pain, shortness of breath, abdominal pain, vomiting, diarrhea. I have treated and performed a rapid initial assessment of this patient. A comprehensive ED assessment and evaluation of the patient, analysis of test results and completion of medical decision making process will be conducted by additional ED providers. PHYSICAL EXAMINATION: GENERAL: Well-appearing, well-nourished and in no acute distress. A&Ox4. Answers questions appropriately. HEAD: Atraumatic, normocephalic. Non-tender. EYES: Pupils equal round and reactive to light, extraocular movements intact, sclera anicteric, conjunctiva are normal. No nystagmus. LUNGS: Breath sounds clear to auscultation bilaterally and equal. No wheezes rales or rhonchi. HEART: Regular rate and rhythm, murmur present Musculoskeletal: Ext b/l: FROM to passive/active. Strength 5+/5. No deficits noted. Extremities: No cyanosis, clubbing, or edema b/l. NEUROLOGICAL: NIH 0. GCS 15. Cranial nerves grossly intact. Normal speech. Normal sensory, motor exams. Pronator drift negative. Heel/stacy, finger/nose wnl. PSYCH: Normal mood, normal affect. - Related Data Allergies/Adverse Reactions: No Known Allergies Allergy (Verified 08/27/17 16:50) Past Medical History - Past Medical History Cardiac Medical History: Reports: Hx Hypertension Endocrine Medical History: Reports: Hx Diabetes Mellitus Type 2 Renal/ Medical History: Denies: Hx Peritoneal Dialysis Musculoskeltal Medical History: Reports Hx Arthritis Past Surgical History: Reports: Hx Orthopedic Surgery Physical Exam - Vital signs Vitals: Temp Pulse Resp BP Pulse Ox 97.5 F 52 L 14 154/58 H 100 05/01/19 16:37 05/01/19 16:37 05/01/19 16:37 05/01/19 16:37 05/01/19 16:37 Course - Vital Signs Vital signs: Temp Pulse Resp BP Pulse Ox 97.5 F 52 L 14 154/58 H 100 05/01/19 16:37 05/01/19 16:37 05/01/19 16:37 05/01/19 16:37 05/01/19 16:37 Doctor's Discharge - Discharge Referrals: NATALIE REA PA-C [Primary Care Provider] - Follow up as needed
--- NOTE | 2019-05-01 17:22 | RADIOLOGY REPORT (SQ) ---
EXAM DESCRIPTION: CT HEAD WITHOUT COMPLETED DATE/TIME: 05/01/2019 5:07 pm REASON FOR STUDY: possible TIA COMPARISON: 2018 TECHNIQUE: Axial images acquired through the brain without intravenous contrast. Images reviewed wi th bone, brain and subdural windows. Additional sagittal and coronal reconstructions were generated. Images stored on PACS. All CT scanners at this facility use dose modulation, iterative reconstruction, and/or weight based d osing when appropriate to reduce radiation dose to as low as reasonably achievable (ALARA). [facility]: Dose Right [facility]: CareDose [facility]: Dose Right [facility]: Teradose 4D [facility]: Smart Vendormate RADIATION DOSE: CT Rad equipment meets quality standard of care and radiation dose reduction techniq ues were employed. CTDIvol: 53.2 mGy. DLP: 964 mGy-cm. mGy. LIMITATIONS: None. FINDINGS: VENTRICLES: Normal size and contour. CEREBRUM: No masses. No hemorrhage. No midline shift. No evidence for acute infarction. Normal gra y-white matter differentiation. 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 CEREBELLUM: No masses. No hemorrhage. No alteration of density. No evidence for acute infarction. EXTRAAXIAL SPACES: No fluid collections. No masses. ORBITS AND GLOBE: No intra- or extraconal masses. Normal contour of globe without masses. CALVARIUM: No fracture. PARANASAL SINUSES: No fluid or mucosal thickening. SOFT TISSUES: No mass or hematoma. OTHER: No other significant finding. 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 No acute intracranial process. EVIDENCE OF ACUTE STROKE: NO. COMMENT: Quality ID # [id number]: Final reports with documentation of one or more dose reduction techniques (e.g., Automated exposure control, adjustment of the mA and/or kV according to patient size, use of iterative reconstruction technique) TECHNICAL DOCUMENTATION: JOB ID: [id number] [employer] All Rights Reserved Reading location - IP/workstation name: [email or web address]
[2019-05-01 17:54] LABS: HEMATOCRIT 34.6 % (36.0-47.0); HEMOGLOBIN 11.1 g/dL (12.0-15.5); MEAN CORPUSCULAR VOLUME 78 fl (80-97); PLATELET COUNT 379 10^3/uL (150-450); RED BLOOD COUNT 4.43 10^6/uL (3.72-5.28); RED CELL DISTRIBUTION WIDTH 18.1 % (11.5-14.0); WHITE BLOOD COUNT 15.7 10^3/uL (4.0-10.5)
[2019-05-01 17:57] LABS: INTERNATIONAL RATION (INR) 0.95; PROTHROMBIN TIME 12.7 SEC (11.4-15.4)
[2019-05-01 17:58] LABS: PARTIAL THROMBOPLASTIN TIME 21.1 SEC (23.5-35.8)
[2019-05-01 18:09] LABS: APPEARANCE,URINE CLOUDY; BILIRUBIN,URINE NEGATIVE (NEGATIVE); COLOR,URINE YELLOW; GLUCOSE, URINE NEGATIVE (NEGATIVE); KETONES,URINE NEGATIVE (NEGATIVE); PROTEIN,URINE 100 mg/dL (NEGATIVE); URINE SPECIFIC GRAVITY 1.017
[2019-05-01 18:18] LABS: ABSOLUTE LYMPHOCYTES# (MANUAL) 2.4 10^3/uL (0.5-4.7); ABSOLUTE MONOCYTES # (MANUAL) 0.6 10^3/uL (0.1-1.4); BASOPHILS % (MANUAL) 1 % (0-2); EOSINOPHILS % (MANUAL) 0 % (0-6); LYMPHOCYTES % (MANUAL) 15 % (13-45); MONOCYTES % (MANUAL) 4 % (3-13); SEGMENTED NEUTROPHILS % (MAN) 80 % (42-78); TOTAL CELLS COUNTED 100
[2019-05-01 18:19] LABS: ANISOCYTOSIS 1+; OVALOCYTES SLIGHT
[2019-05-01 18:20] LABS: PLATELET COMMENT ADEQUATE; TEAR DROP CELLS SLIGHT
[2019-05-01 20:27] LABS: ALBUMIN 4.6 g/dL (3.5-5.0); ALKALINE PHOSPHATASE 89 U/L (38-126); ANION GAP 17 (5-19); ASPARTATE AMINO TRANSFERASE 31 U/L (14-36); BILIRUBIN,DIRECT 0.1 mg/dL (0.0-0.4); BILIRUBIN,TOTAL 0.5 mg/dL (0.2-1.3); BLOOD UREA NITROGEN 12 mg/dL (7-20); CALCIUM 10.3 mg/dL (8.4-10.2); CARBON DIOXIDE 27 mmol/L (22-30); CHLORIDE 97 mmol/L (98-107); GLUCOSE 70 mg/dL (75-110); POTASSIUM 3.5 mmol/L (3.6-5.0); TOTAL PROTEIN 8.6 g/dL (6.3-8.2)
--- NOTE | 2019-05-01 20:58 | ER Document Report ---
ED General - General Chief Complaint: Abdominal Pain Stated Complaint: POSSIBLE STROKE Time Seen by Provider: 05/01/19 16:31 Primary Care Provider: NATALIE REA PA-C [Primary Care Provider] - Follow up as needed Information source: Patient, Relative - patient and much of history cleared up/supplied by son's (?or girlfriend) who pt is living with TRAVEL OUTSIDE OF THE [place] IN LAST 30 DAYS: No - HPI Notes: 88 bf w/ hx per below, comes to ED after family noted she was not acting like herself and disturbingly seemed to be having evidence of her "mini-stroke" she'd had 4 m/a. [id number] says pt had mentioned she wasn't feeling good last night but had been eating well, no new changes in her functioning. this am though, pt stayed in bed again reporting not feeling that well. so, per usual medication regimen though little later than usual since ms fearly had slept through AM--[id number] gave her her five AM meds ~12:30 (glyb uride/metformin 5-500, atorvastatin, lansoprazole, valsartan-hctz 160-12.5, norvasc 10, carvedilol 12.5). pt typically checks her sugar in front of daughter in law then she gives her glyburide-metformin BID if glu >100. pt hasn't had any low or very high sugars dughter in law says, but can't say for sure she checked thsi am before giving all meds. then b/c pt not feeling that well she din't eat bfast as usual. that afternoon, it scared pt son (and his ) to see again her stroke sx of few m/a L weakness and slurring of speech. ems report 17:00 Glu 31, given glucagon and d50. in ED before i saw pt was eating crackers, etc. alert awake w/ initial Glu in ED 61. pt hasn't had any falls which pt also reports. pt has lived w/ son and his s.o. for mo now, and does rely on them to manage her medications, prepare food/transportation. she gets around house holding onto things or w/ walker if going outside for longer distances. no known vomiting, episodes of pain, f/c/s, cough or breathing difficulties. 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 denies: Chills, Diaphoresis, Fever, Weight gain, Weight loss, Recent illness EENT: No symptoms reported Cardiovascular: No symptoms reported Respiratory: No symptoms reported Gastrointestinal: No symptoms reported Genitourinary: No symptoms reported Female Genitourinary: No symptoms reported Musculoskeletal: No symptoms reported Skin: No symptoms reported Hematologic/Lymphatic: No symptoms reported Neurological/Psychological: No symptoms reported Physical Exam - Vital signs Vitals: Pulse Resp BP Pulse Ox 51 L 19 156/65 H 99 05/01/19 16:29 05/01/19 16:29 05/01/19 16:29 05/01/19 16:29 Interpretation: Normal - General General appearance: Appears well, Alert - HEENT Head: Normocephalic, Atraumatic Eyes: Normal Pupils: PERRL - Respiratory Respiratory status: No respiratory distress Chest status: Nontender Breath sounds: Normal Chest palpation: Normal - Cardiovascular Rhythm: Regular Heart sounds: Normal auscultation Murmur: No - Abdominal Inspection: Normal Distension: No distension Bowel sounds: Normal Tenderness: Nontender Organomegaly: No organomegaly - Back Back: Normal, Nontender - Extremities General upper extremity: Normal inspection, Nontender, Normal color, Normal ROM, Normal temperature General lower extremity: Normal inspection, Nontender, Normal color, Normal ROM, Normal temperature, Normal weight bearing. No: Francesco's sign - Neurological Neuro grossly intact: Yes Cognition: Normal Orientation: AAOx4 [place] Coma Scale Eye Opening: Spontaneous Domenic Coma Scale Verbal: Oriented Domenic Coma Scale Motor: Obeys Commands Domenic Coma Scale Total: 15 Speech: Normal Motor strength normal: LUE, RUE, LLE, RLE Sensory: Normal - Psychological Associated symptoms: Normal affect, Normal mood - Skin Skin Temperature: Warm Skin Moisture: Dry Skin Color: Normal Course - Re-evaluation Re-evalutation: after pt given food in ED w/ inital glu 60. repeat checks every hr for few hours ~100s. pt mental status examined on serial exams no signs of focal deficits. remained alert responsive cooperative. i discussed w/ daughter w/u here reassuring, only concern was UTI. i explained i believed this was recrudesnce of CVA deficits in setting of other metabolic disturbance which i believed first was her not eating/feeliung well likely 2/2 uti, and then not eating, then still taking DM med and experiencing profoudn hypoglycemia and exhibiting her old deficits. we discussed plan of ensuring 1) # of poct glu at least 150 before giving that med) and then that pt eating drinking well and can take her Abx i'm Rxing today. i told her this will be a watch and wait in next few days to ensure she cont to clear any delirium and is able to eat and drink well and doesn't get more delirious or worsen. they understand in that event to seek med attn, but today i think we can avoid dangers of hospitalization given all the support and watchful help she has at home. also explained urine cx results may warrant change in abx w/in 48 hrs but theyd receive call about that. freddy in law understands plan and criteria for return, and f/u otherwise w/ pcp. also explained in this vulnerable period be very careful to watch transittions and be diligent to prevent falls, though cont to get her up out of bed, so she doesn't actually become more weak w/ more difficult longer recovery. . - Vital Signs Vital signs: Temp Pulse Resp BP Pulse Ox 98.3 F 84 15 170/75 H 98 05/01/19 21:55 05/01/19 21:55 05/01/19 21:55 05/01/19 21:55 05/01/19 21:55 - Laboratory Result Diagrams: 05/01/19 17:18 05/01/19 19:50 Laboratory results interpreted by me: 05/01/19 05/01/19 05/01/19 17:05 17:18 17:18 WBC 15.7 H Hgb 11.1 L Hct 34.6 L MCV 78 L MCH 25.0 L RDW 18.1 H Seg Neuts % (Manual) 80 H Abs Neuts (Manual) 12.6 H APTT 21.1 L Potassium Chloride Glucose POC Glucose Calcium Total Protein Urine Protein 100 H Urine Urobilinogen 2.0 H Leukocyte Esterase Rfl LARGE H 05/01/19 05/01/19 18:56 19:50 WBC Hgb Hct MCV MCH RDW Seg Neuts % (Manual) Abs Neuts (Manual) APTT Potassium 3.5 L Chloride 97 L Glucose 70 L POC Glucose 33 L* Calcium 10.3 H Total Protein 8.6 H Urine Protein Urine Urobilinogen Leukocyte Esterase Rfl Discharge - Discharge Clinical Impression: Hypoglycemia, Urinary tract infection Disposition: HOME, SELF-CARE Additional Instructions: Today at first your mom had signs of her stroke from months ago. I think this is related to her sugar being low in the setting of her not eating as much and still taking the sugar pill, in the setting of her having a urinary tract infection. I am starting her on antibiotic today which will need to be taken at the same time every day and for the entire course. For the sugar pills it is im perative that we monitor make sure she is not getting any of those if her sugar is anywhere near 200, I would hold if is less than 250 for now and these first few days while she is starting the antibiotic treatment just in case she continues to not eat much. Try to encourage food and fluid intake though and make sure she is not getting worse having vomiting and she will be at increased risk for falls as well until she can start getting through this first few days of the antibiotics. Please return and or call primary care doctor if the see any evidence of fever chills sweats nausea vomiting pain or inability to eat or drink. Prescriptions: Cephalexin [Cephalexin 500 MG Tablet] 1 tab PO BID #14 tablet Referrals: NATALIE REA PA-C [Primary Care Provider] - Follow up as needed
[2019-05-01] MEDS ORDERED: CEPHALEXIN 500 MG CAPSULE PO ONE (21:11)
[2019-05-01 21:56] VITALS: BP 170/75
== END 2019-05-01 21:54 | disposition home or self-care (01) ==
LOC: ER 16:29
DX: N39.0 Urinary tract infection, site not specified (principal); E11.649 Type 2 diabetes mellitus with hypoglycemia without coma; R53.1 Weakness; R53.81 Other malaise; R47.81 Slurred speech; I10 Essential (primary) hypertension; Z79.84 Long term (current) use of oral hypoglycemic drugs; Z79.899 Other long term (current) drug therapy
CPT/HCPCS: 99285; 36415; 87086; 82962; 85025; 85610; 85730; 87088; 80053; 81001; 87186; 70450; A9270